=== PATIENT | male | born 1970 | race African-American/Black ===

== ENCOUNTER 2019-07-24 17:32 | Inpatient (IN) | payer BC ==
[~2019-07-24] VITALS: Ht 175.3 cm; Wt 112.5 kg
[2019-07-24 17:34] VITALS: BP 148/77
[2019-07-24] MEDS ORDERED: NOHOMEMEDICATIONS (17:39)
[2019-07-24 17:51] LABS: HEMATOCRIT 44.9 % (42.0-52.0); HEMOGLOBIN 14.8 gm/dL (14.0-18.0); MCH 28.3 pg (26.0-34.0); MCHC 33.1 g/dL (28.0-37.0); MCV 85.5 fL (80.0-100.0); PLATELET COUNT 144 thou/uL (150-400); RBC 5.25 mil/uL (4.50-6.00); RDW 13.8 % (10.5-14.5); WBC 5.1 thou/uL (4.0-11.0)
[2019-07-24 17:58] LABS: ANION GAP 9 mmol/L (7-16); BUN 16 mg/dL (7-18); CALCIUM 9.9 mg/dL (8.5-10.1); CHLORIDE 103 mmol/L (98-107); CO2 29 mmol/L (21-32); CREATININE 1.4 mg/dL (0.7-1.3); GLUCOSE 102 mg/dL (74-106); POTASSIUM 3.1 mmol/L (3.5-5.1); SODIUM 141 mmol/L (136-145)
[2019-07-24 18:03] LABS: ALBUMIN 4.2 g/dL (3.4-5.0); SGOT 18 U/L (15-37); SGPT 32 U/L (30-65); TOTAL BILIRUBIN 0.3 mg/dL (<0.1-1.0); TROPONIN-I <0.06 ng/mL (<0.06)
[2019-07-24 18:07] LABS: ABSOLUTE NEUTROPHILS 3.6 thou/uL (1.4-8.2); ATYPICAL LYMPHS 2 %; PLATELET ESTIMATE DECREASED
[2019-07-24 20:40] VITALS: BP 133/81
[2019-07-24 21:00] VITALS: BP 135/76
[2019-07-24] MEDS ORDERED: PROAIR HFA8.5 GM INH (21:58)
[2019-07-25 03:20] VITALS: BP 130/82
[2019-07-25 07:22] VITALS: BP 145/71
[2019-07-25 09:51] LABS: CALCIUM 9.1 mg/dL (8.5-10.1); CREATININE 1.1 mg/dL (0.7-1.3)
[2019-07-25 09:52] LABS: POTASSIUM 4.2 mmol/L (3.5-5.1)
[2019-07-25 11:34] VITALS: BP 128/52
[2019-07-25 19:51] VITALS: BP 135/57
[2019-07-26 03:46] VITALS: BP 131/58
[2019-07-26 07:08] VITALS: BP 134/68
[2019-07-26 11:43] VITALS: BP 143/83
[2019-07-26] MEDS ORDERED: ACETAMINOPHEN325 M1 PO (12:06)
[2019-07-26] MEDS ORDERED: RAYOS5 MG PO (12:06)
[2019-07-26] MEDS ORDERED: CEFUROXIME500 MG PO (12:06)
[2019-07-26] MEDS ORDERED: MUCINEX600 MG PO (12:06)
[2019-07-26] MEDS ORDERED: HYDROCODONE-CH115 ML PO (12:06)
[2019-07-26] MEDS ORDERED: PROAIR HFA8.5 GM INH (12:06)
[2019-07-26] MEDS ORDERED: MELATONIN5 M1 PO (12:06)
[2019-07-26] MEDS ORDERED: IPRAT-ALBUT 0.5-3 ML INH (12:06)
[2019-07-26 12:54] VITALS: BP 143/83
[2019-07-28 16:09] LABS: ADENOVIRUS Negative (Negative); INFLUENZA B Negative (Negative); METAPNEUMOVIRUS Negative (Negative); PARAINFLUENZA 1 Negative (Negative); PARAINFLUENZA 2 Negative (Negative); PARAINFLUENZA 3 Negative (Negative); RHINOVIRUS Negative (Negative); RSV A Negative (Negative); RSV B Negative (Negative)
== END 2019-07-26 13:50 | disposition home or self-care (01) | DRG 871 ==
LOC: ER 17:32 → EROBS 19:40 → 3W 19:40
PROVIDERS: Nurse Practitioner Acute Care; Nurse Practitioner Family; ADMIT Internal Medicine
DX: A41.89 Other specified sepsis (principal); J96.21 Acute and chronic respiratory failure with hypoxia; J15.9 Unspecified bacterial pneumonia; N17.9 Acute kidney failure, unspecified; J45.901 Unspecified asthma with (acute) exacerbation; E87.2 Acidosis; E87.6 Hypokalemia; Z53.29 Procedure and treatment not carried out because of patient's decision for other reasons
CPT/HCPCS: 10879